=== PATIENT | male | born 1990 | race Caucasian/White ===

== ENCOUNTER 2019-09-25 20:24 | Emergency (ER) | payer SELFPAY ==
[2019-09-25 20:26] VITALS: BP 158/87; PULSE 135; RESP 20; TEMP 36.6; O2SAT 98; BMI 25.2
--- NOTE | 2019-09-25 22:39 | ED.RN ---
AT 2126, PT HAD TO LEAVE. HE WAS HERE WITH HIS ROOMMATE WHO NEEDED TO GO AND THIS PT WAS DRIVING OTHER PT HOME. ENCOURAGED PT TO RETURN TO ED OR SEEK OTHER PROVIDERS.
== END 2019-09-25 21:27 | disposition left against medical advice (07) ==
LOC: ED 21:57
PROVIDERS: Emergency Provider Emergency Medicine
DX: R50.9 Fever, unspecified (principal)

== ENCOUNTER 2019-09-26 07:02 | Emergency (ER) | payer SELFPAY ==
[2019-09-25 20:26] VITALS: BMI 25.2
[2019-09-26 07:07] VITALS: BP 116/92; PULSE 127; RESP 16; TEMP 36.8; O2SAT 100; BMI 24.7
--- NOTE | 2019-09-26 07:25 | ED.DCSUM_ITS ---
- ER Visit Summary Date of Service: 09/26/19 Chief Complaint: [Sore throat, fatigue, fever] History of Present Illness: The patient is a 29 M Z[place]z to the emergency department with COVID 19 symptoms. Patient states his roommate also with symptoms. Patient states symptoms started about 3 or 4 days ago. Patient states that he had diarrhea a week ago but that seems to have improved. Patient feels short of breath at times. He has had headaches. He denies any known exposures to COVID-19 patients. [] Physical Examination: [HEENT-PERRLA, EOMI. Cranial nerves II through XII grossly intact. TMs clear. Mucous membranes moist. No adenopathy. Cardiovascular-regular rate and rhythm without murmur or ectopy Lungs-clear to auscultation, chest wall stable without crepitus or subcu emphysema Abdomen-normoactive bowel sounds, soft, nontender, no rebound or rigidity, no peritoneal signs. Extremities-intact ?4, normal range of motion, normal pulses, atraumatic] Test Results: [COVID-19 test ordered and pending] Emergency Department Course and Treatment: [] Treatment Plan: [Patient looks well he does not appear ill. Patient will have COVID-19 test sent and he is advised to self quarantine for 14 days. Patient advised use ibuprofen or Tylenol for fever or discomfort.] Disposition: [Discharged home in stable condition] Impression: [Viral URI] This note was generated with [employer] dictation software. It may contain incorrect words, spelling, and punctuation that were not noted in review of the chart prior to signing ED Disposition - Plan for ED Patient: Referrals: Care Physician,No Primary [Primary Care Provider] -
--- NOTE | 2019-09-26 07:27 | ED.DEP ---
ED Disposition - Plan for ED Patient: Instructions: ED URI Viral Referrals: Care Physician,No Primary [Primary Care Provider] - Terry Whitnye III, MD [STAFF PHYSICIAN] - 5-7 Days
== END 2019-09-26 08:09 | disposition home or self-care (01) ==
LOC: ED 08:02
PROVIDERS: Emergency Provider Emergency Medicine
DX: J02.9 Acute pharyngitis, unspecified (principal); R06.02 Shortness of breath; R51 Headache; Z72.0 Tobacco use
CPT/HCPCS: 87635; 94799; 99282; U0003